=== PATIENT | female | born 1955 | race Caucasian/White ===

== ENCOUNTER 2017-03-13 12:43 | Emergency (ER) | payer MEDICARE ==
[~2017-03-13] VITALS: Ht 154.9 cm; Wt 59.0 kg
[2017-03-13] MEDS ORDERED: METOCLOPRAMIDE 5 MG/ML, 2ML IVPush ONE (14:00)
[2017-03-13] MEDS ORDERED: SODIUM CHLORIDE FLUSH 10ML SYR IVF ONE ×2 (14:00)
[2017-03-13] MEDS ORDERED: ONDA4TAB10 PO (14:00)
[2017-03-13] MEDS ORDERED: HYDR-879 PO (14:00)
[2017-03-13] MEDS ORDERED: SODIUM CHLORIDE 0.9% 1,000ML IVBOLUS ONE (14:00)
[2017-03-13] MEDS ORDERED: DIPHENHYDRAMINE 50 MG/ML, 1ML IVPush ONE (14:00)
[2017-03-13] MEDS ORDERED: KETOROLAC 30 MG/1 ML IVPush ONE (14:00)
[2017-03-13] MEDS ORDERED: GABA300C PO ×2 (14:00)
[2017-03-13] MEDS ORDERED: MORP10CA10 PO (14:00)
[2017-03-13] MEDS ORDERED: VENL25TA PO (14:00)
[2017-03-13] MEDS ORDERED: DIPHENHYDRAMINE 50 MG/ML, 1ML ONE (14:28)
[2017-03-13] MEDS ORDERED: KETOROLAC 30 MG/1 ML ONE (14:28)
[2017-03-13] MEDS ORDERED: METOCLOPRAMIDE 5 MG/ML, 2ML ONE (14:28)
[2017-03-13 14:36] LABS: ASPARTATE AMINO TRANSFERASE 37 U/L (15-37); BLOOD UREA NITROGEN 7 mg/dL (7-18)
[2017-03-13 15:03] LABS: ANISOCYTOSIS 1+
[2017-03-13 15:04] LABS: POLYCHROMASIA 1+
[2017-03-13 15:39] VITALS: BP 134/90
== END 2017-03-13 15:41 | disposition home or self-care (01) ==
LOC: ED 14:36
DX: R51 Headache (principal); Z85.3 Personal history of malignant neoplasm of breast; C77.0 Secondary and unspecified malignant neoplasm of lymph nodes of head, face and neck; C79.89 Secondary malignant neoplasm of other specified sites
CPT/HCPCS: 36415; 70450; 80053; 81003; 85025; 96361; 96374; 96375; 99285; J1200; J1885; J2765; J7030

== ENCOUNTER 2017-03-14 19:04 | Inpatient (IN) | payer MEDICARE ==
[~2017-03-14] VITALS: Ht 154.9 cm; Wt 56.7 kg
[~2017-03-14 19:04] MED LIST: GABA300C PO; HYDR-879 PO; MORP10CA10 PO; ONDA4TAB10 PO; VENL25TA PO
[2017-03-14] MEDS ORDERED: MORPHINE SULFATE 4 MG/ML, 1ML ONE (19:46)
[2017-03-14] MEDS ORDERED: ONDANSETRON 2MG/ML, 2ML ONE (19:46)
[2017-03-14] MEDS ORDERED: SODIUM CHLORIDE 0.9%, 500ML IVBOLUS ONE (20:00)
[2017-03-14] MEDS ORDERED: MORPHINE SULFATE 4 MG/ML, 1ML IVPush PRN (20:00)
[2017-03-14] MEDS ORDERED: SODIUM CHLORIDE FLUSH 10ML SYR IVF ONE (20:00)
[2017-03-14] MEDS ORDERED: ONDANSETRON 2MG/ML, 2ML IVPush ONE (20:00)
[2017-03-14] MEDS ORDERED: LORazepam 2 MG/ML, 1ML ONE (20:27)
[2017-03-14] MEDS ORDERED: LORazepam 2 MG/ML, 1ML IVPush ONE (20:30)
[2017-03-14 20:42] LABS: ASPARTATE AMINO TRANSFERASE 37 U/L (15-37); BLOOD UREA NITROGEN 3 mg/dL (7-18)
[2017-03-14 20:46] LABS: IS PT STATUS REG ER OR PRE ER? YES
[2017-03-14 21:09] LABS: PATH.CAST-FLAG NOT PRESENT; SPERM-FLAG NOT PRESENT; SRC-FLAG NOT PRESENT; XTAL-FLAG NOT PRESENT; YLC-FLAG NOT PRESENT
[2017-03-14] MEDS ORDERED: NS + 20MEQ KCL 1,000 ML IV SCH (21:11)
[2017-03-14] MEDS ORDERED: PROCHLORPERAZINE 5 MG/ML, 2ML IM PRN (21:30)
[2017-03-14] MEDS ORDERED: CALCIUM CHLORIDE 13.6 MEQ in SODIUM CHLORIDE 0.9% 100 ML IV ONE (21:30)
[2017-03-14] MEDS ORDERED: LABETALOL 5MG/ML, 20ML IV PRN ×2 (21:30→22:33)
[2017-03-14] MEDS ORDERED: POLYETHYLENE GLYCOL 17 GM PACKET PO PRN (21:30)
[2017-03-14] MEDS ORDERED: BISACODYL 10 MG SUPP PR PRN (21:30)
[2017-03-14] MEDS ORDERED: ACETAMINOPHEN 325 MG TABLET PO PRN (21:30)
[2017-03-14] MEDS ORDERED: MORPHINE SULFATE 5 MG PO PRN (21:30)
[2017-03-14 22:30] VITALS: BP 105/70
[2017-03-14] MEDS: HYDROcodone/APAP 10/325 MG TABLET PO PRN (23:39)
[2017-03-15] MEDS: GABAPENTIN 300 MG CAPSULE PO SCH ×3 (01:28→20:01)
[2017-03-15] MEDS: ENOXAPARIN 40 MG/0.4 ML SQ SCH ×2 (01:29→20:02)
[2017-03-15 01:45] VITALS: BP 121/79
[2017-03-15] MEDS: KADIAN MC SCH ×2 (04:09→07:00)
[2017-03-15] MEDS: MORPHINE SULFATE 4 MG/ML, 1ML IVPush PRN ×6 (04:35→21:52)
[2017-03-15 06:30] VITALS: BP 129/87
[2017-03-15 06:34] LABS: ASPARTATE AMINO TRANSFERASE 42 U/L (15-37); BLOOD UREA NITROGEN 3 mg/dL (7-18)
[2017-03-15] MEDS ORDERED: NS + 20MEQ KCL 1,000 ML IV SCH (08:18)
[2017-03-15] MEDS ORDERED: MAGNESIUM SULFATE PMX 2GM/50ML 50 ML IV ONE (08:30)
[2017-03-15 09:05] LABS: BLOOD UREA NITROGEN 2 mg/dL (7-18)
[2017-03-15] MEDS: VENLAFAXINE 25MG TABLET PO SCH (09:08)
[2017-03-15] MEDS: HYDROcodone/APAP 10/325 MG TABLET PO PRN ×3 (09:08→20:03)
[2017-03-15] MEDS ORDERED: GADOBUTROL 7.5 MMOL/7.5 ML PFS ONE (12:46)
[2017-03-15 12:52] VITALS: BP 111/78
[2017-03-15 13:24] LABS: BLOOD UREA NITROGEN 3 mg/dL (7-18)
[2017-03-15 19:15] VITALS: BP 96/56
[2017-03-16] VITALS (9 sets, daily range): BP systolic 65–121; BP diastolic 41–77
[2017-03-16] MEDS: TRAZODONE 50MG TABLET PO PRN (00:31)
[2017-03-16] MEDS: MORPHINE SULFATE 4 MG/ML, 1ML IVPush PRN ×3 (00:57→08:05)
[2017-03-16] MEDS: HYDROcodone/APAP 10/325 MG TABLET PO PRN ×3 (02:20→20:15)
[2017-03-16 05:33] LABS: BLOOD UREA NITROGEN 3 mg/dL (7-18)
[2017-03-16] MEDS: VENLAFAXINE 25MG TABLET PO SCH (08:05)
[2017-03-16] MEDS: GABAPENTIN 300 MG CAPSULE PO SCH ×2 (08:05→20:14)
[2017-03-16] MEDS ORDERED: GADOBUTROL 10 MMOL/10 ML VIAL ONE (09:01)
[2017-03-16] MEDS ORDERED: KETOROLAC 30 MG/1 ML IVPush PRN (10:00)
[2017-03-16] MEDS ORDERED: SODIUM CHLORIDE 0.9% 1,000ML IVBOLUS ONE (14:00)
[2017-03-16] MEDS: POTASSIUM CHLORIDE 10 MEQ in D5%-0.9% NACL 1,000 ML IV SCH ×2 (16:28→23:12)
[2017-03-16] MEDS: HYDROCORTISONE 100 MG INJ. IVPush SCH (16:28)
[2017-03-16] MEDS: ENOXAPARIN 40 MG/0.4 ML SQ SCH (20:15)
[2017-03-17] MEDS: HYDROCORTISONE 100 MG INJ. IVPush SCH ×4 (00:42→23:59)
[2017-03-17 02:59] VITALS: BP 116/78
[2017-03-17 05:23] LABS: BLOOD UREA NITROGEN 2 mg/dL (7-18)
[2017-03-17 05:27] LABS: ASPARTATE AMINO TRANSFERASE 36 U/L (15-37)
[2017-03-17] MEDS: POTASSIUM CHLORIDE 10 MEQ in D5%-0.9% NACL 1,000 ML IV SCH ×3 (05:49→23:59)
[2017-03-17 07:02] VITALS: BP 135/88
[2017-03-17] MEDS: GABAPENTIN 300 MG CAPSULE PO SCH ×2 (09:45→20:23)
[2017-03-17] MEDS: VENLAFAXINE 25MG TABLET PO SCH (09:45)
[2017-03-17] MEDS: HYDROcodone/APAP 10/325 MG TABLET PO PRN ×2 (09:46→20:23)
[2017-03-17] MEDS: DOCUSATE 100 MG CAPSULE PO PRN (09:46)
[2017-03-17] MEDS ORDERED: PRED1DRO LEFTEYE (11:20)
[2017-03-17] MEDS ORDERED: DORZ10DR21 LEFTEYE (11:24)
[2017-03-17] MEDS ORDERED: TRAV5DRO OP (11:24)
[2017-03-17] MEDS ORDERED: BRIM5DRO3 EACHEYE (11:24)
[2017-03-17] MEDS ORDERED: PILO15DR24 LEFTEYE (11:42)
[2017-03-17 13:40] VITALS: BP 136/90
[2017-03-17] MEDS: MORPHINE SULFATE 4 MG/ML, 1ML IVPush PRN ×2 (13:42→21:30)
[2017-03-17 19:43] VITALS: BP 146/95
[2017-03-17] MEDS: PILOCARPINE OPHTH 2%, 15ML LEFTEYE SCH ×2 (20:15→21:30)
[2017-03-17] MEDS: predniSOLONE OPHTH SUSP 1%, 5ML LEFTEYE SCH ×2 (20:15→21:30)
[2017-03-17] MEDS: TRAVOPROST OPHTH 0.004%, 2.5ML HOMEOPHTH SCH (20:22)
[2017-03-17] MEDS: TIMOLOL MALEAT LEFTEYE SCH (20:22)
[2017-03-17] MEDS: DORZOLAMIDE HCL LEFTEYE SCH (20:22)
[2017-03-17] MEDS: TEMPLATE NON-FORMULARY MED. (Brimonidine Tartrate** (Alphagan P**) 1 DROP(S)) EACHEYE SCH (20:22)
[2017-03-17] MEDS: ENOXAPARIN 40 MG/0.4 ML SQ SCH (20:23)
[2017-03-18] MEDS: MORPHINE SULFATE 4 MG/ML, 1ML IVPush PRN ×5 (00:32→22:38)
[2017-03-18] MEDS: TRAZODONE 50MG TABLET PO PRN (01:16)
[2017-03-18 01:41] VITALS: BP 155/97
[2017-03-18] MEDS: HYDROcodone/APAP 10/325 MG TABLET PO PRN ×2 (04:25→16:57)
[2017-03-18 04:56] LABS: BLOOD UREA NITROGEN 4 mg/dL (7-18)
[2017-03-18] MEDS: predniSOLONE OPHTH SUSP 1%, 5ML LEFTEYE SCH ×4 (05:54→21:24)
[2017-03-18] MEDS: PILOCARPINE OPHTH 2%, 15ML LEFTEYE SCH ×4 (05:54→21:24)
[2017-03-18] MEDS: LEVOTHYROXINE 50 MCG TABLET PO SCH (05:54)
[2017-03-18 07:14] VITALS: BP 145/86
[2017-03-18] MEDS: DORZOLAMIDE HCL LEFTEYE SCH ×2 (09:00→21:04)
[2017-03-18] MEDS: TIMOLOL MALEAT LEFTEYE SCH ×2 (09:00→21:04)
[2017-03-18] MEDS: TEMPLATE NON-FORMULARY MED. (Brimonidine Tartrate** (Alphagan P**) 1 DROP(S)) EACHEYE SCH ×3 (09:00→21:04)
[2017-03-18] MEDS: HYDROCORTISONE 100 MG INJ. IVPush SCH (09:07)
[2017-03-18] MEDS: VENLAFAXINE 25MG TABLET PO SCH (09:07)
[2017-03-18] MEDS: GABAPENTIN 300 MG CAPSULE PO SCH ×2 (09:07→21:24)
[2017-03-18] MEDS: D5%-0.45% NACL+KCL 10MEQ 1,000 ML IV SCH ×2 (11:08→22:38)
[2017-03-18] MEDS ORDERED: DESMOPRESSIN 4 MCG/ML IVPush ONE (12:00)
[2017-03-18 12:44] LABS: BLOOD UREA NITROGEN 4 mg/dL (7-18)
[2017-03-18 14:00] VITALS: BP 132/79
[2017-03-18] MEDS ORDERED: POTASSIUM CHLORIDE 20 MEQ TAB.ER.PRT PO ONE (15:00)
[2017-03-18] MEDS ORDERED: HYDROCORTISONE 100 MG INJ. IVPush SCH (16:00)
[2017-03-18] MEDS: DESMOPRESSIN IVPB SCH (16:53)
[2017-03-18] MEDS: SODIUM CHLORIDE 0.9% IVPB SCH (16:53)
[2017-03-18 20:11] VITALS: BP 137/84
[2017-03-18] MEDS ORDERED: DESMOPRESSIN 4 MCG/ML IVPB SCH (21:00)
[2017-03-18] MEDS: TRAVOPROST OPHTH 0.004%, 2.5ML HOMEOPHTH SCH (21:05)
[2017-03-18] MEDS: ENOXAPARIN 40 MG/0.4 ML SQ SCH (21:24)
[2017-03-19] MEDS: HYDROcodone/APAP 10/325 MG TABLET PO PRN ×3 (01:33→10:44)
[2017-03-19 01:37] VITALS: BP 129/86
[2017-03-19] MEDS: SODIUM CHLORIDE 0.9% IVPB SCH ×2 (04:42→17:29)
[2017-03-19] MEDS: DESMOPRESSIN IVPB SCH ×2 (04:42→17:29)
[2017-03-19] MEDS: LEVOTHYROXINE 50 MCG TABLET PO SCH (05:29)
[2017-03-19] MEDS: predniSOLONE OPHTH SUSP 1%, 5ML LEFTEYE SCH ×4 (05:29→20:06)
[2017-03-19] MEDS: MORPHINE SULFATE 4 MG/ML, 1ML IVPush PRN ×4 (05:29→20:07)
[2017-03-19] MEDS: PILOCARPINE OPHTH 2%, 15ML LEFTEYE SCH ×4 (05:29→20:06)
[2017-03-19 06:52] VITALS: BP 141/92
[2017-03-19] MEDS: TEMPLATE NON-FORMULARY MED. (Brimonidine Tartrate** (Alphagan P**) 1 DROP(S)) EACHEYE SCH ×3 (07:55→20:08)
[2017-03-19] MEDS: VENLAFAXINE 25MG TABLET PO SCH (07:55)
[2017-03-19] MEDS: GABAPENTIN 300 MG CAPSULE PO SCH ×2 (07:55→20:07)
[2017-03-19] MEDS: FLUDROCORTISONE 0.1 MG TABLET PO SCH (07:55)
[2017-03-19] MEDS: DORZOLAMIDE HCL LEFTEYE SCH ×2 (07:55→20:08)
[2017-03-19] MEDS: HYDROCORTISONE 5 MG TABLET PO SCH ×2 (07:55→20:06)
[2017-03-19] MEDS: TIMOLOL MALEAT LEFTEYE SCH ×2 (07:55→20:08)
[2017-03-19 07:59] LABS: BLOOD UREA NITROGEN 5 mg/dL (7-18)
[2017-03-19] MEDS: D5%-0.45% NACL+KCL 10MEQ 1,000 ML IV SCH ×2 (09:44→17:30)
[2017-03-19] MEDS ORDERED: GADOBUTROL 10 MMOL/10 ML PFS ONE (10:21)
[2017-03-19 12:43] VITALS: BP 139/94
[2017-03-19 19:06] VITALS: BP 131/84
[2017-03-19] MEDS: ENOXAPARIN 40 MG/0.4 ML SQ SCH (20:07)
[2017-03-19] MEDS: TRAVOPROST OPHTH 0.004%, 2.5ML HOMEOPHTH SCH (20:08)
[2017-03-20 03:00] VITALS: BP 136/88
[2017-03-20 04:40] LABS: BLOOD UREA NITROGEN 7 mg/dL (7-18)
[2017-03-20] MEDS: SODIUM CHLORIDE 0.9% IVPB SCH (04:44)
[2017-03-20] MEDS: D5%-0.45% NACL+KCL 10MEQ 1,000 ML IV SCH (04:44)
[2017-03-20] MEDS: DESMOPRESSIN IVPB SCH (04:44)
[2017-03-20] MEDS: LEVOTHYROXINE 50 MCG TABLET PO SCH (05:52)
[2017-03-20] MEDS: PILOCARPINE OPHTH 2%, 15ML LEFTEYE SCH ×4 (05:52→20:58)
[2017-03-20] MEDS: predniSOLONE OPHTH SUSP 1%, 5ML LEFTEYE SCH ×4 (05:52→20:58)
[2017-03-20] MEDS: MORPHINE SULFATE 4 MG/ML, 1ML IVPush PRN ×5 (06:03→21:02)
[2017-03-20 07:51] VITALS: BP 150/88
[2017-03-20] MEDS ORDERED: SODIUM CHLORIDE 0.9% 1,000 ML IV SCH (08:00)
[2017-03-20] MEDS: TIMOLOL MALEAT LEFTEYE SCH ×2 (09:00→21:00)
[2017-03-20] MEDS: TEMPLATE NON-FORMULARY MED. (Brimonidine Tartrate** (Alphagan P**) 1 DROP(S)) EACHEYE SCH ×3 (09:00→21:00)
[2017-03-20] MEDS: DORZOLAMIDE HCL LEFTEYE SCH ×2 (09:00→21:00)
[2017-03-20] MEDS: GABAPENTIN 300 MG CAPSULE PO SCH ×2 (09:15→20:58)
[2017-03-20] MEDS: VENLAFAXINE 25MG TABLET PO SCH (09:15)
[2017-03-20] MEDS: HYDROCORTISONE 5 MG TABLET PO SCH ×2 (09:15→20:58)
[2017-03-20] MEDS: FLUDROCORTISONE 0.1 MG TABLET PO SCH (09:16)
[2017-03-20] MEDS: SODIUM CHLORIDE 0.9% 1,000 ML IV SCH ×3 (09:16→21:02)
[2017-03-20 12:53] VITALS: BP 142/89
[2017-03-20] MEDS: DESMOPRESSIN 1 MCG in SODIUM CHLORIDE 0.9% 50 ML IVPB SCH (15:40)
[2017-03-20 17:29] LABS: BLOOD UREA NITROGEN 7 mg/dL (7-18)
[2017-03-20] MEDS: POTASSIUM CHLORIDE 20 MEQ TAB.ER.PRT PO SCH (18:22)
[2017-03-20 19:05] VITALS: BP 145/88
[2017-03-20] MEDS: DOCUSATE 100 MG CAPSULE PO PRN (19:55)
[2017-03-20] MEDS: HYDROcodone/APAP 10/325 MG TABLET PO PRN (19:55)
[2017-03-20] MEDS: ENOXAPARIN 40 MG/0.4 ML SQ SCH (21:00)
[2017-03-20] MEDS: TRAVOPROST OPHTH 0.004%, 2.5ML HOMEOPHTH SCH (21:00)
[2017-03-21] MEDS: MORPHINE SULFATE 4 MG/ML, 1ML IVPush PRN ×8 (00:20→22:39)
[2017-03-21] MEDS: TRAZODONE 50MG TABLET PO PRN (00:20)
[2017-03-21] MEDS: SODIUM CHLORIDE 0.9% 1,000 ML IV SCH ×3 (01:53→12:52)
[2017-03-21 04:06] VITALS: BP 149/89
[2017-03-21] MEDS: DESMOPRESSIN 1 MCG in SODIUM CHLORIDE 0.9% 50 ML IVPB SCH ×2 (04:14→15:30)
[2017-03-21 04:46] LABS: ASPARTATE AMINO TRANSFERASE 34 U/L (15-37); BLOOD UREA NITROGEN 6 mg/dL (7-18)
[2017-03-21] MEDS: predniSOLONE OPHTH SUSP 1%, 5ML LEFTEYE SCH ×4 (06:32→20:20)
[2017-03-21] MEDS: LEVOTHYROXINE 50 MCG TABLET PO SCH (06:32)
[2017-03-21] MEDS: PILOCARPINE OPHTH 2%, 15ML LEFTEYE SCH ×4 (06:32→20:20)
[2017-03-21] MEDS: DORZOLAMIDE HCL LEFTEYE SCH ×2 (07:34→20:22)
[2017-03-21] MEDS: TIMOLOL MALEAT LEFTEYE SCH ×2 (07:34→20:22)
[2017-03-21] MEDS: TEMPLATE NON-FORMULARY MED. (Brimonidine Tartrate** (Alphagan P**) 1 DROP(S)) EACHEYE SCH ×3 (07:34→20:21)
[2017-03-21] MEDS: VENLAFAXINE 25MG TABLET PO SCH (07:38)
[2017-03-21] MEDS: POTASSIUM CHLORIDE 20 MEQ TAB.ER.PRT PO SCH ×2 (07:39→16:30)
[2017-03-21] MEDS: FLUDROCORTISONE 0.1 MG TABLET PO SCH (07:39)
[2017-03-21] MEDS: GABAPENTIN 300 MG CAPSULE PO SCH ×2 (07:39→20:20)
[2017-03-21] MEDS: HYDROCORTISONE 5 MG TABLET PO SCH ×2 (07:39→20:21)
[2017-03-21 08:42] VITALS: BP 155/95
[2017-03-21 13:40] VITALS: BP 147/93
[2017-03-21 19:52] VITALS: BP 135/90
[2017-03-21] MEDS: TRAVOPROST OPHTH 0.004%, 2.5ML HOMEOPHTH SCH (20:21)
[2017-03-21] MEDS: ENOXAPARIN 40 MG/0.4 ML SQ SCH (22:05)
[2017-03-22] MEDS: HYDROcodone/APAP 10/325 MG TABLET PO PRN ×3 (00:54→21:29)
[2017-03-22 02:22] VITALS: BP 145/95
[2017-03-22] MEDS: DESMOPRESSIN 1 MCG in SODIUM CHLORIDE 0.9% 50 ML IVPB SCH ×2 (03:29→16:33)
[2017-03-22] MEDS: MORPHINE SULFATE 4 MG/ML, 1ML IVPush PRN ×5 (03:37→20:07)
[2017-03-22 05:56] LABS: ASPARTATE AMINO TRANSFERASE 29 U/L (15-37); BLOOD UREA NITROGEN 5 mg/dL (7-18)
[2017-03-22] MEDS: PILOCARPINE OPHTH 2%, 15ML LEFTEYE SCH ×4 (06:37→20:39)
[2017-03-22] MEDS: LEVOTHYROXINE 50 MCG TABLET PO SCH (06:37)
[2017-03-22] MEDS: predniSOLONE OPHTH SUSP 1%, 5ML LEFTEYE SCH ×4 (06:37→20:39)
[2017-03-22 07:12] VITALS: BP 171/98
[2017-03-22] MEDS ORDERED: SODIUM CHLORIDE 0.9% 1,000 ML IV SCH (08:00)
[2017-03-22] MEDS: DORZOLAMIDE HCL LEFTEYE SCH ×2 (09:00→21:00)
[2017-03-22] MEDS: TIMOLOL MALEAT LEFTEYE SCH ×2 (09:00→21:00)
[2017-03-22] MEDS: TEMPLATE NON-FORMULARY MED. (Brimonidine Tartrate** (Alphagan P**) 1 DROP(S)) EACHEYE SCH ×3 (09:00→21:00)
[2017-03-22] MEDS: HYDROCORTISONE 5 MG TABLET PO SCH ×2 (09:03→20:40)
[2017-03-22] MEDS: VENLAFAXINE 25MG TABLET PO SCH (09:05)
[2017-03-22] MEDS: FLUDROCORTISONE 0.1 MG TABLET PO SCH (09:05)
[2017-03-22] MEDS: GABAPENTIN 300 MG CAPSULE PO SCH ×2 (09:05→20:40)
[2017-03-22] MEDS: POTASSIUM CHLORIDE 20 MEQ TAB.ER.PRT PO SCH ×2 (09:07→16:43)
[2017-03-22] MEDS: SODIUM CHLORIDE 0.9% 1,000 ML IV SCH ×2 (13:32→20:09)
[2017-03-22 13:38] VITALS: BP 160/94
[2017-03-22 16:12] LABS: BLOOD UREA NITROGEN 6 mg/dL (7-18)
[2017-03-22] MEDS: TRAVOPROST OPHTH 0.004%, 2.5ML HOMEOPHTH SCH (16:45)
[2017-03-22 20:20] VITALS: BP 149/91
[2017-03-22] MEDS: ENOXAPARIN 40 MG/0.4 ML SQ SCH (20:43)
[2017-03-22 22:17] LABS: BLOOD UREA NITROGEN 6 mg/dL (7-18)
[2017-03-23] MEDS ORDERED: ERGOCALCIFEROL 50,000 UNIT CAPSULE PO SCH
[2017-03-23] MEDS: SODIUM CHLORIDE 0.9% 1,000 ML IV SCH ×3 (01:33→21:33)
[2017-03-23 02:40] VITALS: BP 141/89
[2017-03-23 03:34] LABS: BLOOD UREA NITROGEN 5 mg/dL (7-18)
[2017-03-23] MEDS: DESMOPRESSIN 1 MCG in SODIUM CHLORIDE 0.9% 50 ML IVPB SCH (04:18)
[2017-03-23] MEDS: HYDROcodone/APAP 10/325 MG TABLET PO PRN ×3 (04:22→16:13)
[2017-03-23] MEDS: PILOCARPINE OPHTH 2%, 15ML LEFTEYE SCH ×4 (06:34→21:32)
[2017-03-23] MEDS: predniSOLONE OPHTH SUSP 1%, 5ML LEFTEYE SCH ×4 (06:34→21:33)
[2017-03-23] MEDS: MORPHINE SULFATE 4 MG/ML, 1ML IVPush PRN ×4 (06:34→19:59)
[2017-03-23 07:00] VITALS: BP 149/95
[2017-03-23] MEDS: TIMOLOL MALEAT LEFTEYE SCH ×2 (09:00→21:00)
[2017-03-23] MEDS: DORZOLAMIDE HCL LEFTEYE SCH ×2 (09:00→21:00)
[2017-03-23] MEDS: TEMPLATE NON-FORMULARY MED. (Brimonidine Tartrate** (Alphagan P**) 1 DROP(S)) EACHEYE SCH ×3 (09:00→21:00)
[2017-03-23] MEDS: LEVOTHYROXINE 50 MCG TABLET PO SCH (09:04)
[2017-03-23] MEDS: POTASSIUM CHLORIDE 20 MEQ TAB.ER.PRT PO SCH ×2 (09:04→17:16)
[2017-03-23] MEDS: HYDROCORTISONE 5 MG TABLET PO SCH ×2 (09:04→21:33)
[2017-03-23] MEDS: VENLAFAXINE 25MG TABLET PO SCH (09:05)
[2017-03-23] MEDS: FLUDROCORTISONE 0.1 MG TABLET PO SCH (09:05)
[2017-03-23] MEDS: GABAPENTIN 300 MG CAPSULE PO SCH ×2 (09:05→21:33)
[2017-03-23 09:44] LABS: BLOOD UREA NITROGEN 5 mg/dL (7-18)
[2017-03-23 15:12] VITALS: BP 173/99
[2017-03-23 15:39] LABS: BLOOD UREA NITROGEN 5 mg/dL (7-18)
[2017-03-23 20:58] VITALS: BP 138/88
[2017-03-23] MEDS: TRAVOPROST OPHTH 0.004%, 2.5ML HOMEOPHTH SCH (21:00)
[2017-03-23] MEDS: ENOXAPARIN 40 MG/0.4 ML SQ SCH (21:36)
[2017-03-24 02:55] VITALS: BP 166/93
[2017-03-24] MEDS ORDERED: MORPHINE SULFATE 4 MG/ML, 1ML IVPush PRN (03:30)
[2017-03-24] MEDS: predniSOLONE OPHTH SUSP 1%, 5ML LEFTEYE SCH ×4 (06:49→21:07)
[2017-03-24] MEDS: PILOCARPINE OPHTH 2%, 15ML LEFTEYE SCH ×4 (06:49→21:07)
[2017-03-24] MEDS: SODIUM CHLORIDE 0.9% 1,000 ML IV SCH (06:49)
[2017-03-24] MEDS: LEVOTHYROXINE 50 MCG TABLET PO SCH (06:49)
[2017-03-24] MEDS: HYDROcodone/APAP 10/325 MG TABLET PO PRN ×2 (06:53→16:19)
[2017-03-24] MEDS ORDERED: HYDROcodone/APAP 10/325 MG TABLET ONE (06:53)
[2017-03-24 07:10] VITALS: BP 146/97
[2017-03-24 07:26] LABS: BLOOD UREA NITROGEN 6 mg/dL (7-18)
[2017-03-24] MEDS ORDERED: HYDROcodone/APAP 10/325 MG TABLET PO PRN (07:30)
[2017-03-24] MEDS ORDERED: SODIUM CHLORIDE 0.9% 1,000 ML IV SCH (08:00)
[2017-03-24] MEDS ORDERED: DEXTROSE 5% 1,000 ML IV SCH (08:30)
[2017-03-24] MEDS: DEXTROSE 5% 1,000 ML IV SCH ×2 (08:30→21:07)
[2017-03-24] MEDS: TEMPLATE NON-FORMULARY MED. (Brimonidine Tartrate** (Alphagan P**) 1 DROP(S)) EACHEYE SCH ×3 (09:00→21:09)
[2017-03-24] MEDS: HYDROCORTISONE 5 MG TABLET PO SCH (10:22)
[2017-03-24] MEDS ORDERED: DOCUSATE 100 MG CAPSULE PO PRN (11:00)
[2017-03-24] MEDS ORDERED: PROCHLORPERAZINE 5 MG/ML, 2ML IM PRN (11:00)
[2017-03-24] MEDS ORDERED: POLYETHYLENE GLYCOL 17 GM PACKET PO PRN (11:00)
[2017-03-24] MEDS ORDERED: ACETAMINOPHEN 325 MG TABLET PO PRN (11:00)
[2017-03-24] MEDS: GABAPENTIN 300 MG CAPSULE PO SCH ×2 (11:00→21:08)
[2017-03-24] MEDS ORDERED: LABETALOL 5MG/ML, 20ML IV PRN (11:00)
[2017-03-24] MEDS ORDERED: BISACODYL 10 MG SUPP PR PRN (11:00)
[2017-03-24 12:26] LABS: BLOOD UREA NITROGEN 8 mg/dL (7-18)
[2017-03-24] MEDS: POTASSIUM CHLORIDE 20 MEQ TAB.ER.PRT PO SCH (12:26)
[2017-03-24] MEDS: MORPHINE SULFATE 4 MG/ML, 1ML IVPush PRN ×2 (12:37→19:48)
[2017-03-24 14:10] VITALS: BP 143/99
[2017-03-24] MEDS: FLUDROCORTISONE 0.1 MG TABLET PO SCH (16:12)
[2017-03-24 18:49] LABS: BLOOD UREA NITROGEN 8 mg/dL (7-18)
[2017-03-24 20:21] VITALS: BP 151/103
[2017-03-24] MEDS ORDERED: HYDROCORTISONE 5 MG TABLET PO SCH (21:00)
[2017-03-24] MEDS: ENOXAPARIN 40 MG/0.4 ML SQ SCH (21:08)
[2017-03-24] MEDS: TIMOLOL MALEAT LEFTEYE SCH (21:09)
[2017-03-24] MEDS: DORZOLAMIDE HCL LEFTEYE SCH (21:09)
[2017-03-24] MEDS: TRAVOPROST OPHTH 0.004%, 2.5ML HOMEOPHTH SCH (21:09)
[2017-03-25 01:00] LABS: BLOOD UREA NITROGEN 6 mg/dL (7-18)
[2017-03-25 02:54] VITALS: BP 157/102
[2017-03-25] MEDS: HYDROcodone/APAP 10/325 MG TABLET PO PRN ×2 (06:12→15:07)
[2017-03-25] MEDS: predniSOLONE OPHTH SUSP 1%, 5ML LEFTEYE SCH ×4 (06:13→21:19)
[2017-03-25] MEDS: LEVOTHYROXINE 50 MCG TABLET PO SCH (06:13)
[2017-03-25] MEDS: PILOCARPINE OPHTH 2%, 15ML LEFTEYE SCH ×4 (06:13→21:19)
[2017-03-25] MEDS: DEXTROSE 5% 1,000 ML IV SCH (06:14)
[2017-03-25 06:43] LABS: BLOOD UREA NITROGEN 6 mg/dL (7-18)
[2017-03-25 06:59] VITALS: BP 136/97
[2017-03-25] MEDS: POTASSIUM CHLORIDE 20 MEQ TAB.ER.PRT PO SCH ×2 (07:58→16:24)
[2017-03-25] MEDS: VENLAFAXINE 25MG TABLET PO SCH (07:58)
[2017-03-25] MEDS: GABAPENTIN 300 MG CAPSULE PO SCH ×2 (07:58→21:20)
[2017-03-25] MEDS: HYDROCORTISONE 5 MG TABLET PO SCH ×2 (07:58→21:20)
[2017-03-25] MEDS: TEMPLATE NON-FORMULARY MED. (Brimonidine Tartrate** (Alphagan P**) 1 DROP(S)) EACHEYE SCH ×3 (08:05→21:00)
[2017-03-25] MEDS: TIMOLOL MALEAT LEFTEYE SCH ×2 (08:05→21:00)
[2017-03-25] MEDS: DORZOLAMIDE HCL LEFTEYE SCH ×2 (08:05→21:00)
[2017-03-25] MEDS: MORPHINE SULFATE 4 MG/ML, 1ML IVPush PRN ×2 (08:05→19:24)
[2017-03-25 12:47] VITALS: BP 145/96
[2017-03-25 12:54] LABS: BLOOD UREA NITROGEN 7 mg/dL (7-18)
[2017-03-25] MEDS: FLUDROCORTISONE 0.1 MG TABLET PO SCH (16:19)
[2017-03-25 18:51] LABS: BLOOD UREA NITROGEN 6 mg/dL (7-18)
[2017-03-25 20:00] VITALS: BP_SYST 170; BP_SYST 171; BP_SYST 183; BP_DIAS 104; BP_DIAS 109
[2017-03-25] MEDS: TRAVOPROST OPHTH 0.004%, 2.5ML HOMEOPHTH SCH (21:00)
[2017-03-25] MEDS: ENOXAPARIN 40 MG/0.4 ML SQ SCH (21:21)
[2017-03-25 22:46] VITALS: BP 147/98
[2017-03-26 01:06] LABS: BLOOD UREA NITROGEN 5 mg/dL (7-18)
[2017-03-26 02:50] VITALS: BP 139/93
[2017-03-26] MEDS: HYDROcodone/APAP 10/325 MG TABLET PO PRN ×2 (05:07→16:04)
[2017-03-26] MEDS: LEVOTHYROXINE 50 MCG TABLET PO SCH (05:07)
[2017-03-26] MEDS: predniSOLONE OPHTH SUSP 1%, 5ML LEFTEYE SCH ×4 (05:08→20:37)
[2017-03-26] MEDS: PILOCARPINE OPHTH 2%, 15ML LEFTEYE SCH ×4 (05:08→20:38)
[2017-03-26 06:53] LABS: BLOOD UREA NITROGEN 6 mg/dL (7-18)
[2017-03-26 07:40] VITALS: BP 137/89
[2017-03-26] MEDS: TEMPLATE NON-FORMULARY MED. (Brimonidine Tartrate** (Alphagan P**) 1 DROP(S)) EACHEYE SCH ×3 (08:04→20:38)
[2017-03-26] MEDS: DORZOLAMIDE HCL LEFTEYE SCH ×2 (08:04→21:00)
[2017-03-26] MEDS: TIMOLOL MALEAT LEFTEYE SCH ×2 (08:04→21:00)
[2017-03-26] MEDS: VENLAFAXINE 25MG TABLET PO SCH (08:09)
[2017-03-26] MEDS: POTASSIUM CHLORIDE 20 MEQ TAB.ER.PRT PO SCH ×2 (08:09→16:05)
[2017-03-26] MEDS: GABAPENTIN 300 MG CAPSULE PO SCH ×2 (08:10→20:37)
[2017-03-26] MEDS: HYDROCORTISONE 5 MG TABLET PO SCH ×2 (08:10→20:37)
[2017-03-26] MEDS: MORPHINE SULFATE 4 MG/ML, 1ML IVPush PRN ×3 (08:16→20:37)
[2017-03-26] MEDS: FLUDROCORTISONE 0.1 MG TABLET PO SCH (08:43)
[2017-03-26 13:05] LABS: BLOOD UREA NITROGEN 8 mg/dL (7-18)
[2017-03-26 14:07] VITALS: BP 152/88
[2017-03-26 20:11] VITALS: BP 159/99
[2017-03-26] MEDS: ENOXAPARIN 40 MG/0.4 ML SQ SCH (20:37)
[2017-03-26] MEDS: TRAVOPROST OPHTH 0.004%, 2.5ML HOMEOPHTH SCH (20:38)
[2017-03-26] MEDS: TRAZODONE 50MG TABLET PO PRN (22:43)
[2017-03-27 01:46] VITALS: BP 113/77
[2017-03-27] MEDS: predniSOLONE OPHTH SUSP 1%, 5ML LEFTEYE SCH ×4 (04:35→21:11)
[2017-03-27] MEDS: PILOCARPINE OPHTH 2%, 15ML LEFTEYE SCH ×4 (04:35→21:00)
[2017-03-27] MEDS: HYDROcodone/APAP 10/325 MG TABLET PO PRN ×2 (04:35→17:43)
[2017-03-27] MEDS: LEVOTHYROXINE 50 MCG TABLET PO SCH (04:35)
[2017-03-27 05:14] LABS: BLOOD UREA NITROGEN 10 mg/dL (7-18)
[2017-03-27] MEDS: MORPHINE SULFATE 4 MG/ML, 1ML IVPush PRN ×2 (07:51→21:11)
[2017-03-27] MEDS: POTASSIUM CHLORIDE 20 MEQ TAB.ER.PRT PO SCH ×2 (07:52→17:44)
[2017-03-27] MEDS: HYDROCORTISONE 5 MG TABLET PO SCH ×2 (07:53→21:11)
[2017-03-27] MEDS: VENLAFAXINE 25MG TABLET PO SCH (07:53)
[2017-03-27] MEDS: FLUDROCORTISONE 0.1 MG TABLET PO SCH (07:53)
[2017-03-27] MEDS: TIMOLOL MALEAT LEFTEYE SCH ×2 (07:53→21:00)
[2017-03-27] MEDS: TEMPLATE NON-FORMULARY MED. (Brimonidine Tartrate** (Alphagan P**) 1 DROP(S)) EACHEYE SCH ×3 (07:53→21:00)
[2017-03-27] MEDS: DORZOLAMIDE HCL LEFTEYE SCH ×2 (07:53→21:00)
[2017-03-27] MEDS: GABAPENTIN 300 MG CAPSULE PO SCH ×2 (07:54→21:10)
[2017-03-27 08:18] VITALS: BP 141/93
[2017-03-27 14:50] VITALS: BP 124/79
[2017-03-27 19:25] VITALS: BP 133/88
[2017-03-27] MEDS: TRAVOPROST OPHTH 0.004%, 2.5ML HOMEOPHTH SCH (21:00)
[2017-03-27] MEDS: TRAZODONE 50MG TABLET PO PRN ×2 (21:10→23:08)
[2017-03-27] MEDS: ENOXAPARIN 40 MG/0.4 ML SQ SCH (21:11)
[2017-03-28 02:24] VITALS: BP 111/81
[2017-03-28] MEDS: LEVOTHYROXINE 50 MCG TABLET PO SCH (05:14)
[2017-03-28] MEDS: HYDROcodone/APAP 10/325 MG TABLET PO PRN (05:14)
[2017-03-28] MEDS: predniSOLONE OPHTH SUSP 1%, 5ML LEFTEYE SCH ×2 (05:14→11:00)
[2017-03-28] MEDS: PILOCARPINE OPHTH 2%, 15ML LEFTEYE SCH ×2 (05:15→11:00)
[2017-03-28 07:34] VITALS: BP 103/68
[2017-03-28] MEDS: VENLAFAXINE 25MG TABLET PO SCH (07:58)
[2017-03-28] MEDS: HYDROCORTISONE 5 MG TABLET PO SCH (07:58)
[2017-03-28] MEDS: POTASSIUM CHLORIDE 20 MEQ TAB.ER.PRT PO SCH (07:58)
[2017-03-28] MEDS: GABAPENTIN 300 MG CAPSULE PO SCH (07:58)
[2017-03-28] MEDS: FLUDROCORTISONE 0.1 MG TABLET PO SCH (07:59)
[2017-03-28] MEDS: DORZOLAMIDE HCL LEFTEYE SCH (08:00)
[2017-03-28] MEDS: TEMPLATE NON-FORMULARY MED. (Brimonidine Tartrate** (Alphagan P**) 1 DROP(S)) EACHEYE SCH (08:00)
[2017-03-28] MEDS: TIMOLOL MALEAT LEFTEYE SCH (08:00)
[2017-03-28] MEDS ORDERED: ERGO500017 PO (08:36)
[2017-03-28] MEDS ORDERED: HYDR5TAB2 PO ×2 (08:36)
[2017-03-28] MEDS ORDERED: FLUD0.1T PO (08:36)
[2017-03-28] MEDS ORDERED: DOCU-30 PO (08:36)
[2017-03-28] MEDS ORDERED: LEVO50TA PO (08:36)
[2017-03-28] MEDS ORDERED: MORP15TA3 PO (08:36)
[2017-03-30] MEDS ORDERED: ERGOCALCIFEROL 50,000 UNIT CAPSULE PO SCH (11:00)
== END 2017-03-28 14:45 | disposition home or self-care (01) | DRG 829 ==
LOC: ED 20:10 → EDIP 20:30 → 4EST 22:28 → 3NW 03-19 15:25 → UNDODISIN 03-23 17:30
PROVIDERS: ADMIT Internal Medicine; ATTEND Internal Medicine
PROC: D020DZZ Stereotactic Other Photon Radiosurgery of Brain (ICD-10-PCS; principal; 2017-03-23)
DX: C79.89 Secondary malignant neoplasm of other specified sites (principal); G93.41 Metabolic encephalopathy; R47.01 Aphasia; E87.1 Hypo-osmolality and hyponatremia; E27.40 Unspecified adrenocortical insufficiency; E44.0 Moderate protein-calorie malnutrition; E23.0 Hypopituitarism; J90 Pleural effusion, not elsewhere classified; C77.0 Secondary and unspecified malignant neoplasm of lymph nodes of head, face and neck; C79.31 Secondary malignant neoplasm of brain; C79.51 Secondary malignant neoplasm of bone; E87.6 Hypokalemia; E83.51 Hypocalcemia; E88.09 Other disorders of plasma-protein metabolism, not elsewhere classified; E03.9 Hypothyroidism, unspecified; E86.1 Hypovolemia; F17.210 Nicotine dependence, cigarettes, uncomplicated; D75.89 Other specified diseases of blood and blood-forming organs; G44.209 Tension-type headache, unspecified, not intractable; G89.29 Other chronic pain; C50.911 Malignant neoplasm of unspecified site of right female breast; C50.912 Malignant neoplasm of unspecified site of left female breast; I95.9 Hypotension, unspecified; M54.5 Low back pain; H40.9 Unspecified glaucoma; H54.42 Blindness, left eye, normal vision right eye; Z90.13 Acquired absence of bilateral breasts and nipples; Z90.49 Acquired absence of other specified parts of digestive tract; Z92.3 Personal history of irradiation; Z68.23 Body mass index [BMI] 23.0-23.9, adult; Z82.5 Family history of asthma and other chronic lower respiratory diseases; Z82.49 Family history of ischemic heart disease and other diseases of the circulatory system; Z79.899 Other long term (current) drug therapy; Z71.3 Dietary counseling and surveillance; Z71.6 Tobacco abuse counseling
CPT/HCPCS: 36415; 70450; 70553; 71010; 74000; 77280; 77290; 77295; 77300; 77334; 77336; 77370; 77470; 80047; 80048; 80053; 80061; 81001; 81003; 82024; 82306; 82436; 82533; 82570; 82607; 82746; 83001; 83002; 83003; 83735; 83930; 83935; 84133; 84146; 84300; 84305; 84403; 84439; 84443; 84484; 85025; 85610; 85730; 87040; 87086; 93005; 96374; 96375; A9585; G0339; G0340; J1650; J1885; J2405; J2597; J3480; J7042; J7070; 92523-GN; J0780; J1720; J2060; J3475; J7030; J7040

== ENCOUNTER → 2017-04-29 | Outpatient (CLI) | payer MEDICARE ==
[~2017-04-29] MED LIST changes: +BRIM5DRO3 EACHEYE; +DOCU-30 PO; +DORZ10DR21 LEFTEYE; +ERGO500017 PO; +FLUD0.1T PO; +HYDR5TAB2 PO; +LEVO50TA PO; +MORP15TA3 PO; +PILO15DR24 LEFTEYE; +PRED1DRO LEFTEYE; +TRAV5DRO OP
== END | disposition home or self-care (01) ==
LOC: ROC 10:37
PROVIDERS: ATTEND Radiology Radiation Oncology
DX: C79.31 Secondary malignant neoplasm of brain (principal); C50.919 Malignant neoplasm of unspecified site of unspecified female breast; Z92.3 Personal history of irradiation; Z92.21 Personal history of antineoplastic chemotherapy
CPT/HCPCS: G0463

== ENCOUNTER 2017-12-14 19:19 | Emergency (ER) | payer MEDICARE ==
[~2017-12-14] VITALS: Ht 152.4 cm; Wt 56.6 kg
[~2017-12-14 19:19] MED LIST changes: +DOCU-131 PO; -DOCU-30 PO
[2017-12-14] MEDS ORDERED: SODIUM CHLORIDE 0.9% 1,000ML IVBOLUS ONE ×2 (20:00→21:00)
[2017-12-14] MEDS ORDERED: SODIUM CHLORIDE FLUSH 10ML SYR IVF ONE (20:00)
[2017-12-14 20:09] LABS: BASOPHILS % (AUTO) 3 % (0-1); EOSINOPHILS # (AUTO) 0.06 x10^3/uL (0-0.4); EOSINOPHILS % (AUTO) 2 % (1-7); LYMPHOCYTES # (AUTO) 0.45 x10^3/uL (1-3.4); LYMPHOCYTES % (AUTO) 14 % (22-44); MD NO; MEAN CORPUSCULAR VOLUME 93.9 fL (80-100); MEAN PLATELET VOLUME 6.9 fL (7.4-10.4); MONOCYTES # (AUTO) 0.35 x10^3/uL (0.2-0.8); MONOCYTES % (AUTO) 11 % (2-9); NEUTROPHILS # (AUTO) 2.38 x10^3/uL (1.8-6.8); NEUTROPHILS % (AUTO) 71 % (42-75); PLATELET COUNT 248 x10^3/uL (130-400); RED BLOOD COUNT 3.85 x10^6/uL (3.82-5.3); RED CELL DISTRIBUTION WIDTH 14.9 % (9.6-15.2)
[2017-12-14 20:20] LABS: ALBUMIN 2.3 g/dL (3.4-5.0); ANION GAP 4 mmol/L (5-15); CALCIUM 7.8 mg/dL (8.5-10.1); CHLORIDE 97 mmol/L (98-107); CREATININE 0.54 mg/dL (0.55-1.02)
[2017-12-14 21:04] VITALS: BP 94/65
== END 2017-12-14 21:53 | disposition home or self-care (01) ==
LOC: ED 21:47
DX: R42 Dizziness and giddiness (principal); R06.00 Dyspnea, unspecified; I50.9 Heart failure, unspecified; I95.9 Hypotension, unspecified; C50.919 Malignant neoplasm of unspecified site of unspecified female breast; Z87.891 Personal history of nicotine dependence
CPT/HCPCS: 36415; 70450; 71045; 80048; 82040; 85025; 86850; 86900; 93005; 96360; 99285; J7030